=== PATIENT | female | born 1975 | race Caucasian/White ===

== ENCOUNTER 2018-01-29 05:00 | Day surgery (SDC) | payer BC ==
[2018-01-28 12:17] LABS: HEMOGLOBIN 14.1 g/dL (12-16); MCH 31.1 pg (26.0-34.0); MCHC 34.4 g/dL (31.0-37.0); MCV 90.5 fL (80.0-100.0); MEAN PLATELET VOLUME 9.6 fL (7.4-10.4); RBC 4.53 10x6/uL (4.00-5.40); RDW 12.6 % (11.5-14.5); WBC 5.8 10x3/uL (4.8-10.8)
[~2018-01-29] VITALS: Ht 180.3 cm; Wt 81.6 kg
--- NOTE | ~2018-01-29 | OP ---
PATIENT NAME: LINDA THOMAS MEDICAL RECORD: [id number] :75 LOCATION:[facility] ADMISSION DATE: SURGEON: LEVI FERNÁNDEZ DPM DATE OF OPERATION: 01/29/2018 PREOPERATIVE DIAGNOSES: 1. Painful hardware, right foot. 2. Instability, right subtalar joint. 3. Painful scar, right foot. POSTOPERATIVE DIAGNOSES: 1. Painful hardware, right foot. 2. Instability, right subtalar joint. 3. Painful scar, right foot. PROCEDURES: 1. Removal of hardware, right sinus tarsi. 2. Right subtalar stabilization. 3. Right first met hardware removal. 4. Right scar excision first metatarsal. ANESTHESIA: General with local infiltrate utilizing lidocaine and Marcaine plain, approximately 17 cc total around the sinus tarsi and the dorsal first met. HEMOSTASIS: Right thigh tourniquet at 350 mmHg. PREOPERATIVE DETAILS: The patient was taken to the OR and placed on the operating table in a supine position. This was followed by induction of general anesthesia and infiltration of local anesthetic. The right extremity was then prepped and draped in the usual aseptic technique followed by exsanguination and inflation of tourniquet. PROCEDURE #1: Removal of hardware, right sinus tarsi. A 2 cm linear incision was made over the lateral aspect of the right sinus tarsi area. The incision deepened down through subcutaneous tissue with a hemostat being sure to avoid the cutaneous nerves. The implant was visualized and then excised from the wound. At this time, utilizing the arthroereisis technique, a size 10 implant was placed between the talus and the calcaneus in the sinus tarsi under fluoroscopy, noting excellent alignment of the rearfoot as well as stabilization of the subtalar joint as well as proper placement of the implant. The wound was flushed. The deep tissue was reapproximated with 2-0 Vicryl, the subcutaneous tissue with 4-0 Rapide and the skin was closed with 4-0 Rapide in a subcuticular technique followed by Dermabond. PROCEDURE #3: Removal of painful pin, right first metatarsal. A 15-blade was used to create an incision on either side of the painful scar in the dorsal aspect of the first metatarsal. This was approximately 4 cm in length. The painful scar was ellipsed and removed from the foot. At this time, a 15 blade was used to create a small incision where the K-wire was prominent and the K-wire was removed. PROCEDURE #4: Painful scar removal. As described above, the scar was excised during the incision for the pin removal. At this time, a 4-0 Rapide was used to close the subcutaneous tissue as well as the skin in a subcuticular technique OPERATIVE REPORT [id number] MARTHALINDA Martinez followed by Dermabond. Adaptic, 4 x 4 and Conform were used to dress both wounds followed by application of a modified Quintero compression dressing. Tourniquet was deflated. POSTOPERATIVE DETAILS: The patient tolerated the procedure well and left the OR with vital signs stable and vascular status at preoperative levels. The patient was transferred to recovery per anesthesia in stable condition. TRANSINT:[id number] Voice Confirmation ID: [id number] DOCUMENT ID: [id number] LEVI FERNÁNDEZ DPM at 0920 CC: [id number] DICTATION DATE: 01/29/18826 RESEARCH INSTRUMENTATION TECHNICIAN: 01/29/18 1031 [facility] 01/29/18 [facility] [address] [place] [address]
[~2018-01-29 05:00] MED LIST: AMBIEN10 MG PO; NAPROSYN500 MG PO; ZYRTEC10 MG PO
[2018-01-29 05:30] VITALS: BP 117/64; Ht 180.3 cm; Wt 81.6 kg
== END 2018-01-29 10:00 | disposition home or self-care (01) ==
LOC: D.OPS 05:00 → D.PAN 07:00 → D.OPS 07:00
PROVIDERS: Anesthesiology
DX: T84.84XA Pain due to internal orthopedic prosthetic devices, implants and grafts, initial encounter (principal); M25.374 Other instability, right foot; L90.5 Scar conditions and fibrosis of skin; Z01.812 Encounter for preprocedural laboratory examination
CPT/HCPCS: 20680; 0335T; 11420

== ENCOUNTER 2019-06-03 09:00 | Outpatient (CLI) | payer BC ==
[2018-01-29 05:30] VITALS: BMI 25.1
== END 2019-06-03 10:00 | disposition home or self-care (01) ==
LOC: D.MAMMO 09:00
PROVIDERS: ATTEND Family Medicine
DX: Z12.31 Encounter for screening mammogram for malignant neoplasm of breast (principal)